=== PATIENT | female | born 1945 | race Caucasian/White ===

== ENCOUNTER → 2024-11-19 | Outpatient (CLI) | payer MEDICARE, BC, SELFPAY ==
[2024-11-19 16:57] LABS: Cardiac Risk Estimate 2.1 RATIO (3.7-5.6); Cholesterol 157 mg/dL (132-200); HDL Cholesterol 74 mg/dL (40-60); LDL Cholesterol,Calculated 65 mg/dL (0-130); Triglycerides 89 mg/dL (30-150)
== END | disposition home or self-care (01) ==
LOC: COPL 14:53
PROVIDERS: PCP Nurse Practitioner Family; Referring Provider Nurse Practitioner Family; Visit Provider Nurse Practitioner Family
DX: E78.5 Hyperlipidemia, unspecified (principal)
CPT/HCPCS: 36415; 80061